=== PATIENT | female | born 1955 | race Caucasian/White ===

== ENCOUNTER → 2022-03-01 10:01 | Outpatient (CLI) | payer MEDICARE, SELFPAY ==
--- NOTE | ~2022-03-01 | MR_ITS ---
MRI of the right knee Clinical history: Pain Technique: Coronal proton density and proton density-weighted images, sagittal proton-density and T2 fat-sat images, and axial proton-density fat-saturated images were acquired. Findings: Anterior and posterior cruciate ligaments are intact. Medial collateral ligament and the la teral collateral ligament complex are intact. Popliteus tendon is intact. Horizontal tear of the posterior horn of the medial meniscus present. No lateral meniscal tear eviden t. Articular cartilage is relatively well preserved in the medial lateral compartments. 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 Some areas of reactive pollock bchondral marrow edema present at the patella and femoral trochlea. There is cystic/enthesopathic coty nge at the PCL insertion on the proximal tibia. Extensor mechanism intact. Minimal joint effusion present. No Fletcher's cyst. 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 Horizontal tear of the posterior horn of the medial meniscus. Reviewed, dictated and finalized at location . 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 Horizontal tear of the posterior horn of the medial meniscus.
== END ==
PROVIDERS: PCP Internal Medicine; Visit Provider Physician Assistant
DX: S83.241A Other tear of medial meniscus, current injury, right knee, initial encounter (principal); T14.90XA Injury, unspecified, initial encounter
CPT/HCPCS: 73721